=== PATIENT | male | born 2000 | race Two or more races ===

== ENCOUNTER 2024-07-27 09:40 | Emergency (ER) | payer OTHER ==
[~2024-07-27] VITALS: Ht 162.6 cm; Wt 64.4 kg
[2024-07-27] MEDS ORDERED: HYOSCYAMINE SULFATE 0.125 MG TAB.SUBL SL ONE (10:45)
[2024-07-27] MEDS ORDERED: FAMOtidine 10 MG/ML (4ML VIAL) IV PUSH ONE (10:45)
[2024-07-27] MEDS ORDERED: METOCLOPRAMIDE HCL 5 MG/ML VIAL IM ONE (10:45)
[2024-07-27] MEDS ORDERED: 0.9 % SODIUM CHLORIDE 1,000 ML IV ONE (10:45)
[2024-07-27 11:29] LABS: HEMOGLOBIN 16.1 g/dL (13-16.00); MEAN CORPUSCULAR HEMOGLOBIN 30.8 pg (27.00-32.0); MEAN CORPUSCULAR HGB CONC 34.2 g/dl (32.0-36.0); PLATELET COUNT 227 K/uL (150-450); RED BLOOD COUNT 5.22 M/uL (4.00-6.00)
[2024-07-27 12:27] LABS: CALCIUM 9.5 mg/dL (8.5-10.1); CREATININE SERUM 1.11 mg/dL (0.70-1.30); GFR 80.71; POTASSIUM 3.74 mEq/L (3.5-5.1)
== END 2024-07-27 12:16 | disposition home or self-care (01) ==
LOC: ER 09:43
PROVIDERS: General Practice
DX: A09 Infectious gastroenteritis and colitis, unspecified (principal); Z20.822 Contact with and (suspected) exposure to COVID-19
CPT/HCPCS: 36415; 96365; 96372; 99282; J2765; J3490; J7030